=== PATIENT | male | born 2005 | race Hispanic/Latino ===

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

== ENCOUNTER 2023-09-21 19:32 | Emergency (ER) | payer OTHER, SELFPAY ==
[2023-09-21] MEDS ORDERED: Boostrix 0.5 ML (Tdap) VIAL (>/=7 yrs of age) ONE ×2 (20:46→23:18)
[2023-09-21 21:37] LABS: #Neutrophils 6.6 thou/uL (1.40-6.50); %Basophils 0.2 % (0.0-1.0); %Eosinophils 0.3 % (0.0-10.0); %Lymphocytes 18.5 % (28.0-48.0); %Monocytes 10.6 % (0.0-4.0); %Neutrophils 70.2 % (31.0-61.0); Hematocrit 41.5 % (42.0-52.0); Mean Corpuscular HGB CONC 33.7 g/dL (32.0-36.0); Mean Corpuscular Hemoglobin 30.4 pg (25.0-35.0); Mean Platelet Volume 9.8 fL (7.4-10.4); Platelet Count 182 10x3/uL (130-400); RBC Distribution Width 13.3 % (11.5-14.5); Red Blood Cell (RBC) Count 4.61 mill/uL (4.00-5.20); White Blood Cell (WBC) Count 9.4 10x3/uL (4.8-10.8)
[2023-09-21 22:39] LABS: ALT (SGPT) 25 U/L (8-55); AST (SGOT) 40 U/L (5-34); Albumin 4.8 g/dL (3.5-5.0); Alkaline Phosphatase 66 U/L (50-130); Anion Gap 13 mmol/L (10-20); BUN (Urea Nitrogen) 14 mg/dL (8.9-20.6); Calc. Creatinine Clearance 0 mL/min (70-130); Calcium 9.5 mg/dL (7.8-10.44); Carbon Dioxide 25 mmol/L (22-29); Chloride 103 mmol/L (98-107); Estimated GFR 94; Globulin 3.3 g/dL (2.4-3.5); Glucose 86 mg/dL (70-105); Potassium 3.5 mmol/L (3.5-5.1); Protein, Total 8.1 g/dL (6.0-8.3); Sodium 137 mmol/L (136-145)
[2023-09-21] MEDS ORDERED: Ondansetron PF 4 MG/2 ML Vial ONE (23:17)
[2023-09-21] MEDS ORDERED: Ketorolac Tromethamine 30 MG (1 mL) VIAL ONE (23:17)
[2023-09-21] MEDS ORDERED: CEFAZOLIN 2 GM VIAL ONE (23:17)
[2023-09-21] MEDS ORDERED: Sodium Chloride 0.9% 100 ML ONE (23:18)
== END 2023-09-22 00:48 | disposition home or self-care (01) ==
LOC: ERS 19:32
DX: S61.235A Puncture wound without foreign body of left ring finger without damage to nail, initial encounter (principal); L03.012 Cellulitis of left finger; B34.9 Viral infection, unspecified; W45.0XXA Nail entering through skin, initial encounter
CPT/HCPCS: 36416; 80053; 83605; 85025; 87040; 90471; 90715; 96365; 96375; J1885; J2405; J3490

== ENCOUNTER 2023-12-07 12:15 | Emergency (ER) | payer SELFPAY ==
[2023-12-07] MEDS ORDERED: Fluorescein Opthalmic Strip ONE (12:54)
[2023-12-07] MEDS ORDERED: Proparacaine 0.5% Opth 15 ML BOT ONE (12:54)
== END 2023-12-07 13:27 | disposition home or self-care (01) ==
LOC: ERS 12:15
DX: L24.9 Irritant contact dermatitis, unspecified cause (principal)
CPT/HCPCS: 99283

== ENCOUNTER 2024-02-26 06:37 | Emergency (ER) | payer SELFPAY ==
[2024-02-26] MEDS ORDERED: Ondansetron ODT 4 MG TAB ONE (06:46)
[2024-02-26] MEDS ORDERED: Pantoprazole 40 MG VIAL ONE (08:05)
[2024-02-26 08:13] LABS: #Basophils 0.04 10x3/uL (0.0-0.2); %Basophils 0.5 % (0.0-1.0); %Eosinophils 4.9 % (0.0-10.0); %Lymphocytes 23.1 % (21.0-51.0); %Neutrophils 61.2 % (42.0-75.0); Hematocrit 39.8 % (42.0-52.0); Hemoglobin 13.3 g/dL (14.0-18.0); Mean Corpuscular HGB CONC 33.4 g/dL (32.0-36.0); Mean Corpuscular Hemoglobin 30.2 pg (27.0-31.0); Mean Corpuscular Volume 90.5 fL (78.0-98.0); Platelet Count 182 10x3/uL (130-400); RBC Distribution Width 13.2 % (11.5-14.5)
[2024-02-26 08:28] LABS: Influenza A by NAA Not Detected (NotDetected); Influenza B by NAA Not Detected (NotDetected); SARS-CoV-2 NAA Rapid Test Not Detected (NotDetected)
[2024-02-26 08:28] LABS: PTT 33.3 sec (22.9-36.1); Prothrombin Time 13.2 sec (12.0-14.7)
[2024-02-26 08:29] LABS: ALT (SGPT) 14 U/L (8-55); AST (SGOT) 16 U/L (5-34); Albumin 3.7 g/dL (3.5-5.0); Alkaline Phosphatase 96 U/L (40-110); Anion Gap 11 mmol/L (10-20); BUN (Urea Nitrogen) 16 mg/dL (8.9-20.6); Bilirubin, Total 0.2 mg/dL (0.2-1.2); Calc. Creatinine Clearance 0 mL/min (70-130); Calcium 9.2 mg/dL (7.8-10.44); Carbon Dioxide 22 mmol/L (22-29); Chloride 109 mmol/L (98-107); Estimated GFR 126; Glucose 83 mg/dL (70-105); Lipase 26 U/L (8-78); Potassium 4.2 mmol/L (3.5-5.1); Protein, Total 6.7 g/dL (6.0-8.3); Sodium 138 mmol/L (136-145)
[2024-02-26 08:45] LABS: Bacteria/HPF None Seen HPF (None Seen); Bilirubin Negative (Negative); Blood, Urine Negative (Negative); CAUTI Indications for Culture Pelvic or flank pain; Clarity Clear (Clear); Glucose, Urine (Dipstick) Normal (Negative); Ketone, Urine Negative (Negative); Leukocyte Negative Leu/uL (Negative); Nitrite Negative (Negative); Protein, Urine (Dipstick) Negative (Neg-Trace); RBC/HPF 0-3 HPF (0-3); Specific Gravity, Urine 1.024 (1.002-1.036); Squamous Epithelial None Seen HPF (0-3); Urobilinogen Normal mg/dL (Less than 2); WBC/HPF 0-3 HPF (0-3)
[2024-02-26 09:02] LABS: Urine Culture Reflex No No
[2024-02-26] MEDS ORDERED: Iopamidol-370 76% 500 ML MDV (1 ML CHARGE) ONE (10:36)
== END 2024-02-26 09:50 | disposition home or self-care (01) ==
LOC: ERS 06:37
DX: K92.1 Melena (principal); R29.700 NIHSS score 0; Z55.6 Problems related to health literacy
CPT/HCPCS: 36415; 71045; 74177; 80053; 81001; 82274; 83690; 85025; 85610; 85730; 86850; 86900; 86901; 96361; 96374; J2470; Q0162; Q9967